=== PATIENT | female | born 1945 | race Caucasian/White ===

== ENCOUNTER 2020-01-30 09:21 | Outpatient (NON) | payer MEDICARE, SELFPAY ==
[2020-01-30 23:40] LABS: SARS-CoV-2 RNA PCR Positive
== END 2020-01-30 09:22 ==
LOC: ANHCOVIDDT 09:23
PROVIDERS: Visit Provider Family Medicine Adolescent Medicine
DX: U07.1 COVID-19 (principal)
CPT/HCPCS: 87635; C9803; U0003

== ENCOUNTER 2023-12-05 16:06 | Outpatient (CLI) | payer MEDICARE, SELFPAY ==
--- NOTE | ~2023-12-05 | US_ITS ---
EXAMINATION: US venous doppler LE RT DATE: 12/05/2023 17:01 INDICATION: Other specified soft tissue disorders. Right lower limb pain and swelling. TECHNIQUE: Grayscale ultrasound images without and with compression and Doppler ultrasound images of the right lower extremity veins were obtained. COMPARISON: None. FINDINGS: The visualized portions of right common femoral vein, profunda (deep) femoral vein, popliteal vein, p eroneal veins, posterior tibial veins, and greater saphenous vein outflow are patent. There is thromb us in right femoral vein. IMPRESSION: 1. Deep vein thrombosis involving right femoral vein. Reviewed, dictated and finalized at location B.
[2023-12-05 17:26] LABS: Hemoglobin 13.5 g/dL (12.0-15.0); Mean Corpuscular HGB Conc 33.8 g/dl (32-36); Mean Corpuscular Hemoglobin 31.5 pg (26-34); Mean Corpuscular Volume 93.5 fl (80-100); Mean Platelet Volume 11.6 fl (7.4-10.4); Platelet Count Result 288 k/mm3 (150-375); Red Blood Count 4.28 M/mm3 (4.2-5.4); Red Cell Distribution Width 13.3 % (11.5-14.5); White Blood Count 5.9 K/mm3 (4.5-10.0)
[2023-12-05 17:40] LABS: Alanine Aminotransferase 15 U/L (6-35); Albumin Level 3.8 g/dL (3.5-5.1); Alkaline Phosphatase 155 U/L (38-126); Anion Gap 5 mmol/L (4-12); Aspartate Amino Transferase 19 U/L (14-36); Bilirubin,Total 0.5 mg/dL (0.2-1.3); Blood Urea Nitrogen 13 mg/dL (7-17); Carbon Dioxide 27 mmol/L (22-30); Chloride 109 mmol/L (98-107); Estimated Glomerular Filt Rate > 60; Glucose 100 mg/dL (65-110); Potassium 4.1 mmol/L (3.4-5.0); Sodium 141 mmol/L (137-145)
== END 2023-12-05 16:07 | disposition home or self-care (01) ==
PROVIDERS: PCP Family Medicine Adolescent Medicine; Visit Provider Nurse Practitioner Family
DX: R19.7 Diarrhea, unspecified (principal); I10 Essential (primary) hypertension; E66.01 Morbid (severe) obesity due to excess calories; M79.89 Other specified soft tissue disorders
CPT/HCPCS: 36415; 80053; 84443; 85027; 93971